=== PATIENT | male | born 1950 | race Caucasian/White ===

== ENCOUNTER 2017-02-23 05:35 | Observation (INO) | payer MEDICARE ==
[~2017-02-23] VITALS: Ht 177.8 cm; Wt 77.6 kg
[~2017-02-23 05:35] MED LIST: PRILOSEC OTC20 MG PO; SENNA-DOCUSATE1 EAC1 PO; TRAZODONE HCL50 MG PO
--- NOTE | 2017-02-23 10:22 | NUR ---
02/23/17 1022 Shruti Polo 1012 PATIENT ARRIVES TO PACU SLEEPING, AWAKENS TO VERBAL STIMULI. RESP EVEN AND UNLABORED, MASK AT [address]ERS[address] ABD BINDER IN PLACE, WITH EVY DRAIN COMING FROM LEFT SIDE.
[2017-02-23] MEDS ORDERED: MAPAP325 MG PO (10:32)
[2017-02-23] MEDS ORDERED: IBUPROFEN600 MG PO (10:32)
[2017-02-23] MEDS ORDERED: OXYCODON-ACETA1 EAC2 PO (10:32)
--- NOTE | 2017-02-23 11:15 | NUR ---
PT IS BACK TO DS FROM PACU. IS AT THE BEDSIDE. PT HAS WATER AT THE BEDSIDE. CALL LIGHT WITHIN REACH. PT REPORTS PAIN TO BE A 6/10. NO OTHER C/O'S AT THIS TIME. WILL REASSESS WITHIN THE HOUR.
--- NOTE | 2017-02-23 12:20 | NUR ---
PT HAS BEEN SLIGHTLY DESATING TO 89-91% PT IS ENCOURAGED TO TAKE DEEP BREATHS EVEN THOUGH THIS IS PAINFUL FOR HIM. PT IS NOTICED TO BE CLENCHING HIS FISTS, WILL PERIODICALLY GRIMACE, HOLD HIS HAND TO HIS HAND, AND HAS SOMEWHAT RESTLESS LEGS. IS STILL AT THE BEDSIDE. CALL LIGHT WITHIN REACH. NO OTHER C/O'S. WILL REASSESS WITHIN THE HOUR.
--- NOTE | 2017-02-23 14:07 | NUR ---
1245-PATIENT SLEEPING IN ROOM, AT BEDSIDE. PATIENT AWAKENS AND O2 SAT CHECKED 86% PATIENT PLACED ON 2L NC O2 SAT INCREASED TO 100%. PATIENT REPORTS PAIN HAS DECREASED TO 4/10 AND IS COMFORTABLE. AWAITING ROOM FOR MS. FAMILY UPDATED.
--- NOTE | 2017-02-23 14:28 | NUR ---
MET WITH PT AND HIS . HE IS ALERT AND ORIENTED. SEEMED PREPARED FOR TODAY, MENTIONED HOW DIFFICULT THIS YEAR HAS BEEN, BUT HE BELIEVES HE IS HEALED FROM HIS CANCER. GOOD VISIT, DR CARMONA IN, WILL FOLLOW NEEDED
--- NOTE | 2017-02-23 14:40 | NUR ---
PT IS BEING TRANSFERRED TO [place], ORDERED BY DR. CARMONA. PT REPORTS HIS PAIN IS SLIGHTLY BETTER RATING IT AT A 4/10. IS AT THE BEDSIDE.
--- NOTE | 2017-02-23 16:08 | NUR ---
PT ARRIVED ON FLOOR FROM PACU AT 1450, BEDSIDE REPORT FROM LIZETT BRAR. PT TRANSFERED FROM STRETCHER TO BED. PT ALERT AND ORIENTATED, STATES PAIN ONLY WITH MOVEMENT. PLASTIC DIE MAKER APPRENTICE SET UP WITH LIZETT RICHARD. PT VERBALIZED UNDERSTANDING OF PLASTIC DIE MAKER APPRENTICE. IS AT BEDSIDE.
--- NOTE | 2017-02-23 16:41 | NUR ---
PT SITTING IN BED WITH EYES CLOSED. BREATHING EVEN AND UNLABORED. CALL LIGHT AND MIXER SLAGMAN IN REACH.
--- NOTE | 2017-02-23 17:46 | NUR ---
PT ARRIVED FROM [facility] AT 1450. PT RATES PAIN AT 4/10 WITHOUT MOVEMENT. PT TOLERATING ROOM AIR TRIAL WELL, NO DESATS. PT TOLERATING CLEAR LIQUIDS WELL, DIET ORDER ADVANCED TO REGULAR. HIS WILL BRING IN FOOD HE WILL EAT DUE TO HIS VEGITARIAN DIET. PT EVY DRAIN DRAINING SANGUANOUS FLUID. PT HAS MATERIAL ASSEMBLER, TOLERATING WELL.
--- NOTE | 2017-02-23 18:33 | NUR ---
CALLED DR CARMONA TO REPORT LACK OF URINE OUTPUT, 75ML IN 4HRS. TELEPHONE ORDER FOR 500ML BOLUS LR. ORDER ENTERED.
--- NOTE | 2017-02-23 19:45 | NUR ---
RECIEVED REPORT FROM DAY SHIFT NURSE. PT RESTING IN BED WITH SPOUSE AT BEDSIDE. PRESCRIPTION FOR PAIN MEDICATION GIVEN TO SO SHE MAY DROP OFF AT PHARMACY. BOLUS ENDED. CONT IVF RATE STARTED. PT STATES PAIN AT A TOLERABLE LEVEL. IMMIGRATION CASE WORKER IN USE. MEPELEX C/D/I. HYPOACTIVE BS AUSCULTATED. CONT PULSE OX IN PLACE. INSTRUCTED PT HOW TO USE IS AND HOW OFTEN TO USE. PT C/O DRY MOUTH. ICE CHIPS GIVEN. PT DENIES FURTHER NEEDS. CALL HERNÁNDEZ IN REACH.
--- NOTE | 2017-02-23 20:44 | NUR ---
PT RESTING IN BED. O2 LEVEL AT 86% RA. APPLIED 2L/MIN O2, LEVEL BACK UP TO 98%. TOILETING OFFERED. PT DENIES FURTHER NEEDS. CALL HERNÁNDEZ IN REACH.
--- NOTE | 2017-02-23 22:17 | NUR ---
PT RESTING IN BED. PT ABLE TO VOID USING URINAL. URINE APPEARS DARK YELLOW. EVY DRAIN EMPTIED. PT DENIES NEEDS AT THIS TIME. CALL HERNÁNDEZ IN REACH.
--- NOTE | 2017-02-23 23:24 | NUR ---
PT SLEEPING. NEW BAG LR INFUSING. CALL HERNÁNDEZ IN REACH.
--- NOTE | 2017-02-24 00:14 | NUR ---
PT SLEEPING. CALL HERNÁNDEZ IN REACH.
--- NOTE | 2017-02-24 01:45 | NUR ---
PT VOIDED IN URINAL. SCDS APPLIED. ASSISTED PT WITH REPOSITIONING HIMSELF IN BED. PT STATES HE IS IN PAIN. ENCOURAGED PT TO PUSH HIS RAILROAD CONDUCTOR BUTTON. PT DENIES FURTHER NEEDS. CALL HERNÁNDEZ IN REACH.
--- NOTE | 2017-02-24 02:39 | NUR ---
PT RESTING IN BED. SCDS ON. IVF INFUSING. PT DENIES NEEDS. CALL HERNÁNDEZ IN REACH.
--- NOTE | 2017-02-24 03:33 | NUR ---
PT SLEEPING, EVIDENCE BY SNORING. SCDS IN PLACE. IVF INFUSING. CALCINER OPERATOR HELPER IN USE. CALL HERNÁNDEZ IN REACH.
--- NOTE | 2017-02-24 04:41 | NUR ---
PT VOIDED USING URINAL AT BEDSIDE. VERY UNSTEADY ON FEET. REPLACED SCRAP CARRIER SYRINGE. PT RATES PAIN 4/10 AT REST AND 8/10 WITH MOVEMENT. ENCOURAGED PT TO PRESS SCRAP CARRIER BUTTON. NO FLATUS, ACTIVE BS.PT DENIES FURTHER NEEDS. CALL HERNÁNDEZ IN REACH.
--- NOTE | 2017-02-24 05:40 | NUR ---
PT RESTING IN BED. DENIES NEEDS.
--- NOTE | 2017-02-24 05:42 | NUR ---
PT DID NOT SLEEP VERY WELL LAST NIGHT. HE NEEDED REMINDER TO PUSH HIS LABORATORY ASSOCIATE BUTTON. PT STATES HIS PAIN IS TOLERABLE UNLESS HE MOVES. VERY UNSTEADY ON HIS FEET. ONLY STOOD AT BEDSIDE, DID NOT AMBULATE. HE REQUIRED ASSISTANCE WITH STANDING WHEN HE USED THE URINAL. VOIDED AN ADEQUATE AMOUNT. 2L O2 LAST NIGHT WHILE SLEEPING. IVF INFUSING R FOREARM. ABD BINDER IN PLACE. DRESSINGS C/D/I. NO FLATUS. ACTIVE BS. TOOK PAIN MED SCRIPT TO PHARMACY LAST NIGHT.
--- NOTE | 2017-02-24 07:06 | NUR ---
CLEARED SHEEP FARM WORKER-38.3MG ADMINISTERED.
--- NOTE | 2017-02-24 07:38 | NUR ---
RECIEVED BEDSIDE REPORT FROM LIZETT GLEASON. ASSISTED PT TO TOILET. HE WILL CALL WHEN READY. PT MOVING MUCH BETTER. REPORTS NOT PASSING GAS YET.
--- NOTE | 2017-02-24 08:52 | NUR ---
PT IS SITTING UP IN BED WITH CALL LIGHT IN REACH. ORDERED PT BREAKFAST. PT DID NOT NEED ANYTHING ELSE AT THE MOMENT
[2017-02-24] MEDS ORDERED: CURAMIN PO (09:42)
--- NOTE | 2017-02-24 09:43 | NUR ---
MED REC COMPLETE
--- NOTE | 2017-02-24 09:43 | NUR ---
MED REC COMPLETE
--- NOTE | 2017-02-24 10:00 | NUR ---
PT IS SITTING UP IN CHAIR WITH CALL LIGHT IN REACH, VISITING WITH . PT HAD A TEMP OF 100.2 WILL NOTIFY NURSE. PT SAID HE WOULD MAYBE SHOWER AFTER HE SEES THE DOCTOR.
--- NOTE | 2017-02-24 10:36 | OR ---
[facility] [address], [place] [address] Signed DATE OF PROCEDURE: 02/23/17 PREOPERATIVE DIAGNOSIS Incisional hernia, cephalad to the umbilicus. Port-A-Cath device (not needed). History of pancreatic carcinoma status post Whipple resection Dr. Kanu Pat, [place], [place] 2010. POSTOPERATIVE DIAGNOSIS Incisional hernia, cephalad to the umbilicus. Port-A-Cath device (not needed). History of pancreatic carcinoma status post Whipple resection Dr. Kanu Pat, [place], [place] 2010. PROCEDURE Explant of a Port-A-Cath device left subclavicular area. Repair of incisional hernia, retro rectus type repair. Implantation of Prolene mesh (retro rectus underlay technique). SURGEON: April Carmona MD ANESTHESIA General endotracheal (Oswald Urbina CRNA) and local 30 mL of 0.25% Marcaine with Epinephrine. INDICATION This 67 -year-old white man is a survivor of pancreatic cancer having undergone a Whipple resection by Dr. Kanu Pat in [place], [place] greater than 5 years ago. He has developed an incisional hernia cephalad to the umbilicus. It is episodically uncomfortable for him. The patient also has a Port-A-Cath device which has not been flushed in over 3 years and he no longer needs the device and wishes it to be explanted as well. He is admitted at this time to undergo incisional hernia repair as well as explantation of Port-A-Cath, understand the risks of bleeding, infection, recurrent hernia and other unforeseen complications. He understands and wished to proceed. FINDINGS The fascial defect was approximately 6 cm. Scarring of the peritoneum to the posterior rectus sheath necessitated a retro rectus repair with implantation of Prolene mesh in the retro rectus position. Prolene mesh pledgets were used to more fully secure the Electronically Signed By: APRIL CARMONA MD 02/24/17 1036 PATIENT NAME: RADHA ELLSWORTH OPERATIVE REPORT DATE OF : 48 PHYSICIAN: APRIL CARMONA MD REPORT #: [id number] REPORT IS CONFIDENTIAL AND NOT TO BE RELEASED WITHOUT AUTHORIZATION [facility] [address], [place] [address] Signed sutures. A drain was placed as well. Intraabdominal (intraperitoneal) examination showed some adhesions to the small bowel but no evidence of carcinomatosis, ascites or sign of recurrent pancreatic cancer. As regards the port device, it was Lavender colored, likely a PowerPort device and with a non Groshong tip. It was explanted without problem and he tolerated both procedures well. DESCRIPTION OF PROCEDURE The patient was brought to the operating room, given a general endotracheal anesthetic. He received preoperative antibiotic Ancef. Sequential compression device stockings were used and heparin subcutaneously administered. The abdomen was prepared with a Chlorhexidine solution and draped sterilely. Additionally the torso was clipped and prepared as well to allow for exposure of the left infraclavicular Port-A-Cath device. A transverse incision was made over the left pectoralis in the previous incision. Dissection carried through the subcutaneous tissue where a Lavender type port device was identified. Permanent sutures that were used to secure were divided and the port withdrawn without problem. The tract through which the catheter was passed was oversewn with 2-0 Vicryl and the wound was then closed with interrupted 2-0 Vicryl and a running subcuticular 3-0 Vicryl. Steri-Strips were applied. Attention was turned towards the hernia itself. This was located cephalad to the umbilicus. The previous midline incision was incised cephalad to the umbilicus and extended a bit. Dissection carried through the subcutaneous tissue identifying well hernia sac. There was no sign of incarcerated viscus. Using blunt and electrocautery dissection, the fascial defect was more fully defined, measured about 6 cm in size. A plane was developed between the hernia sac and the overlying fascia. Due to scar tissue and so forth maintaining the properitoneal sp koko was somewhat difficult with multiple defects in the peritoneal layer. Ultimately, the retro rectus space bilaterally was deemed the most appropriate space for implantation of the mesh. This was accomplished circumferentially for at least 4 cm. inferiorly at the umbilicus, similar dissection was undertaken. Entry to the peritoneal cavity was obvious and intraabdominal inspection showed no sign of ascites or carcinomatosis. There were a few small bowel adhesions. These were left in situ. They were not obstructive. Defects in the peritoneal layer were reapproximated with running 2-0 Vicryl suture as necessary ultimately allowing the peritoneal layer to be fully approximated to provide a biologic barrier against implanted mesh in the retro rectus space. A 6 inch x 6 inch piece of Prolene mesh was cut to an elliptical configuration and secured in the retro Electronically Signed By: APRIL CARMONA MD 02/24/17 1036 PATIENT NAME: RADHA ELLSWORTH OPERATIVE REPORT DATE OF : 48 PHYSICIAN: APRIL CARMONA MD REPORT #: [id number] REPORT IS CONFIDENTIAL AND NOT TO BE RELEASED WITHOUT AUTHORIZATION [address] [address] Signed rectus space with interrupted 0 Prolene sutures with Prolene mesh pledgets. Midline fascia was able to be reapproximated over the defect as well, also s e cured similarly. 30 cc of 0.25% Marcaine with epinephrine was then instilled. Through a separate stab incision, a 7 mm flat Naren drain was placed. Nora's layer was reapproximated with interrupted 2-0 Vicryl and skin closed with running subcuticular 3-0 Vicryl. Steri-Strips were applied as was a Mepilex silver sponge dressing. Similarly the infraclavicular incision was dressed. The patient was ultimately extubated and after application of an abdominal binder taken to recovery room in good condition. BLOOD LOSS Less than 25 cc. Sponge needle and instrument counts reported as correct x3. MD MISSAEL Perkins/Taylor /[id number] cc: MD Kanu Asif MD Electronically Signed By: APRIL CARMONA MD 02/24/17 1036 PATIENT NAME: RADHA ELLSWORTH OPERATIVE REPORT DATE OF : 48 PHYSICIAN: APRIL CARMONA MD REPORT #: [id number] REPORT IS CONFIDENTIAL AND NOT TO BE RELEASED WITHOUT AUTHORIZATION
--- NOTE | 2017-02-24 10:48 | NUR ---
DISCONTINUED BAIL BONDING AGENT PER DOCTOR ORDER. PT USED 8MG THIS SHIFT. WASTED 12MG IN MED ROOM WITH LIZETT RIVAS. IV FLUIDS RESUMED. PT SITTING IN THE CHAIR. PT REPORTS PAIN BETTERED CONTROLED. GAVE EDUCATION ON TRANSITIONING TO TO ORAL MEDICATIONS WITH IV BACKUP. PT VERBALIZED UNDERSTANDING.
--- NOTE | 2017-02-24 11:03 | NUR ---
PT BACK IN BED. PT WOULD LIKE TO REST AT THIS TIME. ENCOURAGED USE OF IS WHILE HE IS AWAKE. PT WAS USING IS.
--- NOTE | 2017-02-24 14:34 | NUR ---
PT IS RESTING IN BED SAFELY WITH CALL LIGHT IN REACH. PT HAS A TEMP OF 101.6, WILL NOTIFY NURSE. PT SAID HE IS FEELING "PUNY". PT DID NOT NEED ANYTHING ELSE AT THE MOMENT
--- NOTE | 2017-02-24 15:42 | NUR ---
PT UP AMBULATING IN HIS ROOM. STATES HIS PAIN IS BETTER CONTROLLED.
--- NOTE | 2017-02-24 18:34 | NUR ---
PT REPORTS FEELING MUCH STRONGER THIS AFTERNOON. PT INDEPENDENT IN ROOM, TRANSFERING BETWEEN BED AND CHAIR. PT TOLERATING CHANGE FROM METAL ROOFING MECHANIC TO PO PAIN MEDICATIONS WELL. PT HAD SLIGHTLY ELEVATED TEMP AWARE. ENCOURAGE IS USE. DRESSINGS C/D/I. D5LR AT 85ML/HR. PT VOIDING WELL. PT REPORTS NO BM OR FLATUS AT THIS TIME.
--- NOTE | 2017-02-24 18:37 | NUR ---
PT IS RESTING IN BED WITH CALL LIGHT IN REACH. PT'S TEMP HAS GONE DOWN PT WAS REMINDED TO CONTINUE USING HIS IS. PT ASKED FOR MORE ICE WATER
--- NOTE | 2017-02-24 19:41 | NUR ---
RECIEVED REPORT FROM DAY SHIFT NURSE. PT RESTING IN BED WITH AT BEDSIDE. PT STATES PAIN AT A TOLERABLE LEVEL. 2L/MIN O2 VIA NC, CONT. PULSE OX IN PLACE. PT PASSING FLATUS. STATES HE HAD A BM TODAY. DENIES NEEDS A THIS TIME. CALL HERNNÁDEZ IN REACH.
--- NOTE | 2017-02-24 20:30 | NUR ---
PT RESTING IN BED. O2 TITRATED TO 1L/MIN. PT STATES PAIN IS ALMOST NON-EXISTANT EXCEPT FOR WHEN HE MOVES, HOWEVER STILL TOLERABLE. PT HAS ACTIVE BS. DRESSINGS C/D/I. IVF INFUSING. PT DENIES NEEDS. CALL HERNÁNDEZ IN REACH.
--- NOTE | 2017-02-24 21:59 | NUR ---
PT RESTING IN BED. STATES HE HAS BEEN VOIDING BUT IN THE TOILET. REMINDED PT THAT WE WANT TO KEEP TRACK OF HIS URINE OUTPUT ESPECIALLY WHILE HE IS ON IVF. PT AGREES TO VOID IN THE URINAL FROM NOW ON. PT DENIES NEEDS AT THIS TIME. STATES HE IS IN NO PAIN AT THIS TIME.
--- NOTE | 2017-02-24 22:41 | NUR ---
PT FOUND STANDING UP AT THE EDGE OF THE BED TANGLED IN HIS IV TUBING AND PULSE OX LINE. ASKED PT TO CALL IF HE NEEDS ASSISTANCE GETTING UP OUT OF BED SO HE DOES NOT FALL OVER TUBING. PT AGREES. PT DENIES PAIN AT THIS TIME. CALL HERNÁNDEZ IN REACH. NC IN PLACE AT 1L- 92%.
--- NOTE | 2017-02-25 00:23 | NUR ---
ONCE AGAIN PT WAS FOUND STANDING AT THE EDGE OF THE BED LOOKING FOR HIS NASAL CANNULA. REMINDED PT TO USE HIS CALL HERNÁNDEZ IF HE NEEDS ASSISTANCE. ASSISTED PT TO BATHROOM. PT VOIDED IN URINAL, URINE CLEAR YELLOW. ADMINISTERED MOTRIN PER AUG FOR PAIN 06/13. PT DENIES FURTHER NEEDS. CALL HERNÁNDEZ IN REACH.
--- NOTE | 2017-02-25 02:16 | NUR ---
PT SLEEPING. HR DIPPED TO 39 BPM WHEN PT SLEEPING. WOKE PT UP AND HR BACK UP TO 47. AUSCULTATED HEART SOUNDS. PT STATES HE FEELS NORMAL. TOILETING OFFERED. PT DENIES NEEDS. CALL HERNÁNDEZ IN REACH.
--- NOTE | 2017-02-25 04:28 | NUR ---
PT RESTING. VOIDED IN URINAL. CONT PULSE OX READING 39BPM. AUSCULTATED HEART SOUNDS TO FIND HEART RATE AT 44. DRESSINGS C/D/I. BOWEL SOUNDS ACTIVE. PASSING FLATUS. 1L O2 VIA NC AT 96%. PT DENIES NEEDS. CALL HERNÁNDEZ IN REACH.
--- NOTE | 2017-02-25 05:42 | NUR ---
EVY DRAIN EMPTIED. PT RATES "DISCOMFORT" 06/13. IBUPROFEN ADMINISTERED. URINAL EMPTIED. HR IN 50S. PT DENIES FURTHER NEEDS. O2 REMOVED.
--- NOTE | 2017-02-25 05:59 | NUR ---
PT HAD A GREAT NIGHT. SLEPT ON AND OFF. PT'S HR DIPPED INTO THE HIGH 30S ON THE CONT. PULSE OX WHEN HE WAS ASLEEP. WOKE PT UP AND HR INCREASED BACK INTO THE 40S. PT TOLERATING PO, PASSING FLATUS, BM YESTERDAY, VOIDING WELL. PAIN HAS BEEN CONTROLLED WITH IBUPROFEN. AFEBRILE LAST NIGHT. DRESSINGS C/D/I. LIKELY D/C HOME TODAY.
--- NOTE | 2017-02-25 07:10 | NUR ---
BEDSIDE REPORT RECEIVED FROM LIZETT GLEASON. PT AWAKE AND ALERT IN BED. IV FLUID D5 LR INFUSING AT 85 ML/HR. PT HR 46, SPO2 92% ON ROOM AIR. PT STATING PAIN IS 0/10 AT THIS TIME. PT OP SITE CLEAN DRY AND INTACT. EVY DRAIN SEROUS FLUID. PT HAS NO REQUESTS AT THIS TIME. CALL LIGHT IN REACH.
--- NOTE | 2017-02-25 08:54 | NUR ---
MORNING ASSESSMENT COMPLETE. PT ALERT, ORIENTED X 3. LUNGS CLEAR THROUGHOUT. PT BOWEL TONES ACTIVE X 4, ABDOMEN SOFT, TENDER IN LEFT LOWER QUADRANT WITH PALPATION. PT STATING 0/10 PAIN AT THIS TIME, DENIES NAUSEA. PT STATING THAT NO LONGER PAIN WITH URINATION, GOOD OUTPUT THIS MORNING 600 ML. PTS NOW PRESENT IN ROOM, PT USING IS CORRECTLY. CALL LIGHT IN REACH. WILL CONTINUE TO MONITOR.
--- NOTE | 2017-02-25 09:20 | NUR ---
PT OUT OF ROOM AMBULATING HALLWAY ON MEDICAL SURGICAL FLOOR INDEPENDENTLY WITH . PT GAIT STEADY.
--- NOTE | 2017-02-25 11:05 | NUR ---
CHECKED ON PT. PT SITTING UP IN BED, AT BEDSIDE. ALBA NAIK NOW IN ROOM TO ASSIST WITH AM CARE, SHOWER. PT HAS NO ADDITIONAL REQUESTS AT THIS TIME. NOT COMPLAINING OF PAIN. WILL CONTINUE TO MONITOR.
--- NOTE | 2017-02-25 11:50 | NUR ---
DR. CARMONA IN PTS ROOM DISCUSSING PT'S DISCHARGE, FOLLOW-UP, AND HOME CARE, INFORMATION GIVEN TO PT AND , QUESTIONS ANSWERED. RN PRESENT IN ROOM. EVY DRAIN DRESSING CHANGED. BULB EMPTIED 10 ML SEROSANGUINOUS FLUID.
--- NOTE | 2017-03-10 13:40 | DS ---
[facility] [address], [place] [address] Signed DATE OF DISCHARGE: 02/25/17 REASON FOR ADMISSION This 67-year-old white man who is a patient of Dr. Au underwent repair of incisional hernia cephalad to the umbilicus as well as explantation of Port-A-Cath device in the left infraclavicular space. He was anticipated to be discharged home same day. However, due to pain, considerations related to a submuscular implant of Prolene mesh, he was admitted for pain control. PERTINENT PHYSICAL EXAMINATION A well-developed, well-nourished white man in mild to moderate discomfort. Incision has a Mepilex dressing on it. There is drainage of serosanguineous fluid from the drain. The left infraclavicular space has Mepilex silver sponge dressing from Port-A-Cath catheterization. HOSPITAL COURSE He was admitted given parenteral pain medication ultimately with a FRAME TENDER device as well as nonsteroidal medication, Motrin. He had progressive improvement of his pain, able to ambulate and ultimately to tolerate oral intake well. By day of day of discharge, he is doing quite well. No longer needing parenteral medications and well managed with Percocet alone. It is anticipated that he will follow up with me in the coming week for removal of his drain. It is showing drainage of serosanguineous fluid now it is not quite ready to remove at this point. DISCHARGE MEDICATIONS Ibuprofen 600 mg p.o. q.6 hours p.r.n. pain, Percocet 7.5/325 1 to 2 p.o. q.6h. p.r.n. pain #30, Tylenol 325 mg 2 tabs p.o. q.6 hours as needed for pain instead of Percocet. He will continue with Trazodone 50 mg p.o. at bedtime, Prilosec 20 mg p.o. at bedtime, and Senna, Docusate Sodium tablet 1 p.o. daily. DISCHARGE DIAGNOSES Status post repair of incisional hernia, supraumbilical area. Removal of left subclavian Port-A-Cath device. Distant history of pancreatic carcinoma, status post Whipple resection, [place] in 2010. Reflux disease. Electronically Signed By: APRIL CARMONA MD 03/10/17 1340 PATIENT NAME: RADHA ELLSWORTH DISCHARGE SUMMARY DATE OF : 48 PHYSICIAN: APRIL CARMONA MD REPORT #: [id number] REPORT IS CONFIDENTIAL AND NOT TO BE RELEASED WITHOUT AUTHORIZATION [facility] [address] [place] [address] [place] [address] Signed April Carmona MD JM/Modl /[id number] cc: Librado Au MD Electronically Signed By: APRIL CARMONA MD 03/10/17 1340 PATIENT NAME: RADHA ELLSWORTH DISCHARGE SUMMARY DATE OF : 48 PHYSICIAN: APRIL CARMONA MD REPORT #: [id number] REPORT IS CONFIDENTIAL AND NOT TO BE RELEASED WITHOUT AUTHORIZATION
== END 2017-02-25 12:09 | disposition home or self-care (01) ==
LOC: DS 05:35 → MS 05:36 → DS 06:45 → MS 15:19 → DS 02-25 12:09
PROVIDERS: ADMIT Surgery
PROC: 0WUF0JZ Supplement Abdominal Wall with Synthetic Substitute, Open Approach (ICD-10-PCS; principal; 2017-02-23 06:45)
PROC: 0JPT03Z Removal of Infusion Device from Trunk Subcutaneous Tissue and Fascia, Open Approach (ICD-10-PCS; 2017-02-23 06:45)
DX: K43.2 Incisional hernia without obstruction or gangrene (principal); F32.9 Major depressive disorder, single episode, unspecified; K21.9 Gastro-esophageal reflux disease without esophagitis; Z45.1 Encounter for adjustment and management of infusion pump; Z79.899 Other long term (current) drug therapy; Z90.410 Acquired total absence of pancreas; Z85.07 Personal history of malignant neoplasm of pancreas
CPT/HCPCS: 00832; 96361; 96372; 96374; 96376; C1781; G0378; J0461; J0690; J1170; J1644; J1885; J2270; J2405; J2704; J2710; J3010; J7120